=== PATIENT | male | born 1930 ===

== ENCOUNTER 2021-07-17 15:51 | Inpatient (IN) | payer OTHER ==
[~2021-07-17] VITALS: Ht 162.6 cm; Wt 61.2 kg
[2021-07-18] MEDS ORDERED: SYNTHROID100 MCG PO (10:43)
[2021-07-18] MEDS ORDERED: ADULT LOW DOSE81 M1 PO (10:44)
[2021-07-18] MEDS ORDERED: COZAAR25 MG PO (10:44)
[2021-07-18] MEDS ORDERED: LIPITOR40 MG PO (10:45)
[2021-07-18] MEDS ORDERED: HYDROCHLOROTHIA25 MG PO (10:45)
[2021-07-18] MEDS ORDERED: ALPHAGAN OPHT (10:46)
[2021-07-18] MEDS ORDERED: ALLERGY EYE DRO10 M1 OP (10:47)
[2021-07-18] MEDS ORDERED: CLARITIN10 MG PO (10:48)
[2021-07-18] MEDS ORDERED: CELEXA40 MG PO (10:48)
[2021-07-18] MEDS ORDERED: AMBIEN10 MG PO (10:50)
[2021-07-18] MEDS ORDERED: TAMS0.4C PO (10:50)
[2021-07-18] MEDS ORDERED: ATIVAN2 M1 PO (10:50)
[2021-07-18] MEDS ORDERED: AMLODIPINE BESY10 MG (16:27)
[2021-07-18] MEDS ORDERED: ALPHAGAN P5 M2 (16:27)
[2021-07-25] MEDS ORDERED: TAMS0.4C PO (15:49)
[2021-07-25] MEDS ORDERED: VITAMIN C500 M1 PO (15:49)
[2021-07-25] MEDS ORDERED: ZINC SULFATE50 M1 PO (15:49)
[2021-07-25] MEDS ORDERED: POM (MEDICAMENTO EN OP (15:49)
[2021-07-25] MEDS ORDERED: LIPITOR40 MG PO (15:49)
[2021-07-25] MEDS ORDERED: PROTEINEX-18 LI30 ML PO (15:49)
[2021-07-25] MEDS ORDERED: MELATONIN5 M2 PO (15:49)
[2021-07-25] MEDS ORDERED: MEGESTROL400 MG/11 PO (15:49)
[2021-07-25] MEDS ORDERED: LOSARTAN POTASS25 MG PO (15:49)
[2021-07-25] MEDS ORDERED: SYNTHROID100 MCG PO (15:49)
== END 2021-07-25 18:10 | disposition home or self-care (01) | DRG 640 ==
LOC: ER 15:51 → MEDJ 07-18 10:38
PROVIDERS: ADMIT Internal Medicine; ATTEND Internal Medicine
PROC: 4A12X4Z Monitoring of Cardiac Electrical Activity, External Approach (ICD-10-PCS; principal; 2021-07-18)
PROC: 8E0ZXY6 Isolation (ICD-10-PCS; 2021-07-18)
DX: E87.1 Hypo-osmolality and hyponatremia (principal); U07.1 COVID-19; N39.0 Urinary tract infection, site not specified; E46 Unspecified protein-calorie malnutrition; E86.0 Dehydration; E87.6 Hypokalemia; E03.8 Other specified hypothyroidism; I10 Essential (primary) hypertension; F32.89 Other specified depressive episodes; H40.89 Other specified glaucoma